=== PATIENT | male | born 1960 | race Caucasian/White ===

== ENCOUNTER 2024-01-15 11:47 | Emergency (ER) | payer BC, OTHER ==
[2024-01-15 12:00] VITALS: BP 145/83; PULSE 76; RESP 20; TEMP 98.6; BMI 24.3
== END 2024-01-15 13:07 | disposition home or self-care (01) ==
LOC: FER 11:47
DX: S90.31XA Contusion of right foot, initial encounter (principal); W20.8XXA Other cause of strike by thrown, projected or falling object, initial encounter
CPT/HCPCS: 73630-TC-RT-FY; 99283-25

== ENCOUNTER 2024-02-02 23:43 | Emergency (ER) | payer BC ==
[2024-02-02 23:57] VITALS: BP 121/91; PULSE 82; RESP 18; TEMP 97.7; BMI 21.9
[2024-02-03] MEDS ORDERED: SULFAMETHOXAZOLE/TRIMETHOPRIM 800MG/160MG D.S. TABLET ONE (00:35)
[2024-02-03] MEDS: SULFAMETHOXAZOLE/TRIMETHOPRIM 800MG/160MG D.S. TABLET PO ONE (00:56)
[2024-02-03 04:26] LABS: URINE APPEARANCE BLOODY; URINE BILIRUBIN SMALL (NEGATIVE); URINE COLOR RED; URINE GLUCOSE (UA) NEGATIVE (NEGATIVE)
[2024-02-03 04:28] LABS: URINE PROTEIN 30 (NEGATIVE)
[2024-02-03 04:29] LABS: URINE LEUK ESTERASE 2+ (NEGATIVE)
== END 2024-02-03 02:00 | disposition home or self-care (01) ==
LOC: FER 23:43
PROC: 0T2BX0Z Change Drainage Device in Bladder, External Approach (ICD-10-PCS; principal; 2024-02-03)
DX: R33.9 Retention of urine, unspecified (principal); R14.0 Abdominal distension (gaseous); R10.9 Unspecified abdominal pain
CPT/HCPCS: 81003; 87086; 99283-25

== ENCOUNTER 2024-02-04 19:37 | Emergency (ER) | payer BC ==
[2024-02-04 19:52] VITALS: BP 142/84; PULSE 73; RESP 18; TEMP 97.3; BMI 21.8
[2024-02-04 21:48] LABS: EPITHELIAL CELLS 0-5 /hpf
== END 2024-02-04 21:06 | disposition home or self-care (01) ==
LOC: FER 19:37
PROC: 0T9B70Z Drainage of Bladder with Drainage Device, Via Natural or Artificial Opening (ICD-10-PCS; principal; 2024-02-04)
DX: R33.9 Retention of urine, unspecified (principal); R10.30 Lower abdominal pain, unspecified; R39.12 Poor urinary stream
CPT/HCPCS: 81003; 81015; 87086; 99283-25